=== PATIENT | male | born 1950 | race Caucasian/White ===

== ENCOUNTER → 2022-12-16 10:23 | Outpatient (BNVA) | payer MEDICARE, MEDICAID, SELFPAY | PROVIDERS: Referring Provider Family Medicine; Visit Provider Dermatology | DX: L82.1 Other seborrheic keratosis (principal); L57.8 Other skin changes due to chronic exposure to nonionizing radiation; D69.2 Other nonthrombocytopenic purpura; D48.5 Neoplasm of uncertain behavior of skin; D37.01 Neoplasm of uncertain behavior of lip | CPT/HCPCS: 11104; 40490; 99203 ==